=== PATIENT | male | born 1990 | race Caucasian/White ===

== ENCOUNTER 2018-02-15 22:09 | Inpatient (IN) | payer OTHER ==
[~2018-02-15] VITALS: Ht 175.3 cm; Wt 74.8 kg
[2018-02-15 22:19] VITALS: BP 137/75; PULSE 124; RESP 18; TEMP 98.7; O2SAT 97
[2018-02-15 22:59] LABS: AUTOMATED NEUTROPHIL # 6.3 TH/MM3 (1.8-7.7); BASOPHIL # 0.1 TH/MM3 (0-0.2); BASOPHIL % 0.5 % (0.0-2.0); EOSINOPHIL # 0.5 TH/MM3 (0-0.4); EOSINOPHIL % 4.1 % (0.0-4.0); HEMATOCRIT 45.4 % (39.0-51.0); HEMOGLOBIN 15.1 GM/DL (13.0-17.0); LYMPH % 30.3 % (9.0-44.0); LYMPHOCYTE # 3.4 TH/MM3 (1.0-4.8); MEAN CORPUSCULAR HGB CONC 33.3 % (32.0-36.0); MONO % 8.4 % (0.0-8.0); MONOCYTE # 0.9 TH/MM3 (0-0.9); NEUT % 56.7 % (16.0-70.0); PLATELET COUNT 281 TH/MM3 (150-450); RED BLOOD COUNT 5.04 MIL/MM3 (4.50-5.90); RED CELL DISTRIBUTION WIDTH 13.3 % (11.6-17.2); WHITE BLOOD COUNT 11.1 TH/MM3 (4.0-11.0)
[2018-02-15 23:09] LABS: ALBUMIN 4.8 GM/DL (3.4-5.0); ALT (GPT) 54 U/L (12-78); AST (GOT) 28 U/L (15-37); BICARBONATE 23.5 MEQ/L (21.0-32.0); BLOOD UREA NITROGEN 12 MG/DL (7-18); CALCIUM 9.7 MG/DL (8.5-10.1); CHLORIDE 103 MEQ/L (98-107); CREATININE 1.17 MG/DL (0.60-1.30); GLOMERULAR FILTRATION RATE 76 ML/MIN (>89); GLUCOSE,RANDOM 92 MG/DL (74-106); SODIUM (NA) 140 MEQ/L (136-145)
[2018-02-15 23:12] LABS: ALKALINE PHOSPHATASE 67 U/L (45-117); TOTAL BILIRUBIN ADULT 0.2 MG/DL (0.2-1.0); TOTAL PROTEIN 8.3 GM/DL (6.4-8.2)
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
[2018-02-16 00:24] LABS: BILIRUBIN, URINE NEG (NEG); BLOOD, URINE NEG (NEG); GLUCOSE,URINE NEG (NEG); KETONE, URINE NEG (NEG); NITRITE,URINE NEG (NEG); URINE COLOR LIGHT-YELLOW (YELLW/STRAW); URINE LEUKOCYTE ESTERASE NEG (NEG)
[2018-02-16 05:57] VITALS: BP 132/65; PULSE 71; RESP 18; TEMP 98.8; O2SAT 98
[2018-02-16] MEDS ORDERED: LORazepam 0.5 MG TAB PO PRN (09:15)
[2018-02-16] MEDS ORDERED: ACETAMINOPHEN 325 MG TAB PO PRN (09:15)
[2018-02-16] MEDS ORDERED: LORazepam 2 MG/ML VIAL IM PRN ×2 (09:15)
[2018-02-16] MEDS ORDERED: ALUMINUM/MAGNESIUM/SIMETH 30 ML CUP PO PRN (09:15)
[2018-02-16] MEDS ORDERED: LORazepam 1 MG TAB PO PRN ×2 (09:15)
[2018-02-16] MEDS ORDERED: FLUMAZENIL 0.5 MG/5 ML VIAL IV PUSH PRN (09:15)
[2018-02-16] MEDS ORDERED: MAGNESIUM HYDROXIDE SUSP 30 ML CUP PO PRN (09:15)
[2018-02-16] MEDS ORDERED: LORazepam 2 MG/ML VIAL IV PUSH PRN ×4 (09:15)
[2018-02-16] MEDS ORDERED: LORazepam 2 MG TAB PO PRN (09:15)
[2018-02-16 10:44] VITALS: BP 122/59; PULSE 70; RESP 18; TEMP 98.2; O2SAT 98
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
[2018-02-16 18:17] VITALS: BP 130/70; PULSE 80; RESP 20; TEMP 98.3; O2SAT 98
[2018-02-16] MEDS: REMOVE OLD NICODERM (NICOTINE) PATCH T-DERMAL SCH (21:00)
[2018-02-16] MEDS: QUEtiapine FUMARATE 25 MG TAB PO SCH (21:13)
[2018-02-17 05:43] VITALS: BP 104/61; PULSE 69; RESP 16; TEMP 97.8
[2018-02-17] MEDS: QUEtiapine FUMARATE 25 MG TAB PO SCH ×2 (08:40→20:55)
[2018-02-17] MEDS: NICOTINE 21 MG/24 HR PATCH T-DERMAL SCH (09:10)
[2018-02-17 09:12] LABS: BICARBONATE 26.2 MEQ/L (21.0-32.0); BLOOD UREA NITROGEN 15 MG/DL (7-18); CALCIUM 9.4 MG/DL (8.5-10.1); CHLORIDE 106 MEQ/L (98-107); CREATININE 1.11 MG/DL (0.60-1.30); GLOMERULAR FILTRATION RATE 81 ML/MIN (>89); GLUCOSE,RANDOM 99 MG/DL (74-106); SODIUM (NA) 141 MEQ/L (136-145)
[2018-02-17 09:14] LABS: CHOLESTEROL 168 MG/DL (120-200)
[2018-02-17 09:19] LABS: HDL CHOLESTEROL 59.9 MG/DL (40.0-60.0); LDL CHOLESTEROL 75 MG/DL (0-99); TRIGLYCERIDES 164 MG/DL (42-150)
[2018-02-17 16:42] LABS: HEMOGLOBIN A1C 5.4 % (4.3-6.0)
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
[2018-02-17 17:52] VITALS: BP 109/64; PULSE 77; RESP 18; TEMP 98.3; O2SAT 99
[2018-02-17] MEDS: REMOVE OLD NICODERM (NICOTINE) PATCH T-DERMAL SCH (20:58)
[2018-02-18 05:50] VITALS: BP 116/56; PULSE 62; RESP 17; TEMP 97.3; O2SAT 97
[2018-02-18] MEDS: QUEtiapine FUMARATE 25 MG TAB PO SCH ×2 (08:27→20:59)
[2018-02-18] MEDS: NICOTINE 21 MG/24 HR PATCH T-DERMAL SCH (08:27)
--- NOTE | 2018-02-18 14:56 | PD.TTN ---
Patient Problems 1. Discharge planning 2. Medication compliance 3. Knowledge deficit 4. Lack of coping skills Progress Toward Goals Provider Present: Dr. Janet Melendez Provider Input: Dr. Ye's held his treatment team meeting to discuss patient's treatment plan, medication, and discharge. Patient has [facility] tomorrow.Presents paranoid Nurse(s) Input: Patient's nurse states, patient is denying any internal stimulation or delusional content. However, feels patient is covering his [place] Psychiatric Counselors Present: Desi Schultz [facility] Psych Therapist Input: Patient presented anxious, poor insight, denying any help, made poor eye contact, affect guarded. Speech was clear, organized,. Denied suicidal and homicidal ideation. Medication compliant. Group Spec/RT/OT/KING Present: FERNANDO Young Group Spec/RT/OT/KING Input: Patient is appropriate at Desi Alaniz [facility] Feb 18, 2018 14:56
--- NOTE | 2018-02-18 16:27 | HHI.PYPN ---
Subjective Remarks Patient seen for follow, chart reviewed. Discussion nursing staff reported the patient denying any paranoia, had some difficulty with sleep last evening. Patient was found in the room noted B, cooperative. Patient states that he has been feeling "good" denying any side effects from medication regimen. Patient states that his mood has been also well, denies feeling depressed. Patient state he spoke with his mother recently which went well. Patient states that he continues to have relief of an "outside agency" not associated with the government who have been watching him which she believed occurred after he relapsed into drug use weak as he was released from assisted and stated that "they were after me". Patient states he relapsed on methamphetamines had been having this feeling since. Patient state he feels safe in the hospital but believes that after he leaves the hospital but will continue to be after him and that his mother is aware of this as well. Discussion about increasing his medications were reviewed which he agreed. Patient denies any perceptional services, denies SI or HI. Review of Systems Except as stated in HPI: all other systems reviewed are Neg Mental Status Examination Appearance: Appropriate Consciousness: Alert Orientation: x4 Motor Activity: Normal gait Speech: Unremarkable Language: Adequate Fund of Knowledge: Adequate Attention and Concentration: Adequate Memory: Unremarkable Mood: Appropriate Affect: Appropriate Thought Process & Associations: Intact, Linear Thought Content: Bizarre thinking, Delusional Delusion Type: Paranoid, Other (Persecutory delusion) Suicidal Ideation: No Suicidal Plan: No Suicidal Intention: No Homicidal Ideation: No Homicidal Plan: No Homicidal Intention: No Insight: Poor Judgment: Poor Results Vitals/IOs Vital Signs Date Time Temp Pulse Resp B/P (MAP) Pulse Ox O2 Delivery O2 Flow Rate FiO2 02/18/18 05:50 97.3 62 17 116/56 (76) 97 02/16/18 05:57 Room Air Assessment & Plan Problem List: (1) Unspecified psychosis ICD Codes: F29 - Unspecified psychosis not due to a substance or known physiological condition Assessment & Plan Patient this time continues to endorse paranoid and persecutory delusions of the "outside agency" and will continue to be after him. Patient also reported having this delusion began after relapse into substance use specifically methamphetamines. Patient may be having residual psychotic symptoms from recent substance intoxication. We will continue to increase quetiapine 50 mg p.o. twice daily for psychosis. Continue to monitor with behavior. Patient will present to mental health court tomorrow for petition for involuntary hospitalization. This was planning in progress. Justification for Cont. Inpt. At risk of further decompensation at lower level of care. Discharge Planning Patient return back to his residence was psychiatrically stable. Adonay Melendez MD Feb 18, 2018 16:27
[2018-02-18] MEDS: REMOVE OLD NICODERM (NICOTINE) PATCH T-DERMAL SCH (21:00)
[2018-02-19 05:56] VITALS: BP 116/60; PULSE 68; RESP 16; TEMP 97.7; O2SAT 98
[2018-02-19] MEDS: NICOTINE 21 MG/24 HR PATCH T-DERMAL SCH (09:29)
[2018-02-19] MEDS: QUEtiapine FUMARATE 25 MG TAB PO SCH (09:29)
[2018-02-19] MEDS ORDERED: SERO25TA PO (09:47)
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
== END 2018-02-19 14:00 | disposition home or self-care (01) | DRG 885 ==
LOC: NEDAMB 22:09 → NEDA 02-16 09:07 → H260 02-16 10:20
PROVIDERS: ADMIT Student in an Organized Health Care Education/Training Program; ATTEND Student in an Organized Health Care Education/Training Program
DX: F29 Unspecified psychosis not due to a substance or known physiological condition (principal); F15.90 Other stimulant use, unspecified, uncomplicated; Z72.0 Tobacco use
CPT/HCPCS: 80048; 80053; 80061; 80307; 81001; 83036; 85007; 85027; 99285